=== PATIENT | male | born 1950 | race Caucasian/White ===

== ENCOUNTER 2017-10-10 08:06 | Outpatient (CLI) | payer MEDICARE, OTHER ==
--- NOTE | 2017-10-10 10:14 | MRI ---
CERVICAL SPINE MRI WITHOUT CONTRAST: 10/10/2017 HISTORY: Neck pain. Cervical radiculopathy. COMPARISON: None. TECHNIQUE: Multiplanar, multisequence MR imaging of the cervical spine is obtained without contrast. FINDINGS: There are mild to moderate degenerative changes at the atlantoaxial interspace. Sagittal STIR imagin g demonstrates no focal area of osseous marrow edema. There is minimal anterolisthesis at C2-C3. Otherwise, cervical vertebral body height and alignment a ppear within normal limits. There is no focal prevertebral soft tissue abnormality seen. C2-C3: Mild disk space narrowing and disk desiccation. Bilateral facet and uncovertebral osteophyte formation. Mild bilateral neural foraminal stenosis noted, right greater than left. No significant central canal stenosis. C3-C4: There is disk space narrowing, disk desiccation, and mild disk bulge, with partial effacement of the ventral thecal sac and mild central canal stenosis. There is bilateral facet and uncovertebr al osteophyte formation, left greater than right, with moderate/severe bilateral neural foraminal talia nosis, left greater than right. C4-C5: There is disk space narrowing, disk desiccation, and mild disk bulge. There is a small right paracentral disk protrusion with mild central canal stenosis, primarily right-sided. There is promi nent facet and uncovertebral osteophyte formation with moderate left and severe right neural foramina l stenosis. C5-C6: Disk space narrowing, disk desiccation, and mild disk bulge present, with partial effacement of the ventral thecal sac and mild central canal stenosis. Prominent facet and uncovertebral osteoph yte formation with severe bilateral neural foraminal stenosis. C6-C7: Disk space narrowing, disk desiccation, and disk bulge present, with partial effacement of th e ventral thecal sac and mild central canal stenosis. Disk bulge, as well as prominent bilateral fac et and uncovertebral osteophyte formation causes severe bilateral neural foraminal stenosis, right gr eater than left. C7-T1: Disk space narrowing, disk desiccation, and disk bulge present, with partial effacement of th e ventral thecal sac and mild central canal stenosis. Significant bilateral facet and uncovertebral osteophyte formation noted with moderate bilateral neural foraminal stenosis. No focal area of abnormal signal intensity identified within the cervical cord. IMPRESSION: Prominent multilevel neural foraminal stenosis bilaterally, as detailed above. POS: [facility]
== END 2017-10-10 08:07 | disposition home or self-care (01) ==
LOC: TBSIIMAG 08:06
PROVIDERS: ATTEND Neurological Surgery
DX: M54.12 Radiculopathy, cervical region (principal); M99.81 Other biomechanical lesions of cervical region
CPT/HCPCS: 72141

== ENCOUNTER 2017-11-21 09:05 | Outpatient (CLI) | payer MEDICARE, OTHER ==
--- NOTE | 2017-11-21 12:58 | MRI ---
BRAIN MRI WITH AND WITHOUT CONTRAST: History Benign neoplasm, followup examination in 3 months. COMPARISON: 08/24/17 at [facility] [place] TECHNIQUE: Brain MRI is performed with and without intravenous Gadolinium administration. Multisequential, mult iplanar imaging is performed. FINDINGS: No parenchymal hemorrhage. No extraaxial hematoma. No edison mass, mass effect, or midline shift. Brain volume is age appropriate. Cortical flores-white matter differentiation is preserved. Ventricles and sulci are patent and symmetric. Central arterial flow voids are maintained. Absent restricted diffusion. No evidence of hemorrhage on the axial gradient echo sequence. Adequate aeration of the mastoid air cells. There is bilateral paranasal sinus disease. No pathologic enhancement of the brain parenchyma. Redemonstration of an extraaxial right parafalcine mass, measuring 1.9 cm in the maximum dimension. En plague meningioma is once again favored. No significant associated mass effect or vasogenic edema . No additional extraaxial masses are appreciated. IMPRESSION: Essentially stable En plaque meningioma along the anterior right parafalcine region. POS: [facility]
[2017-11-21] MEDS ORDERED: Gadobenate Dimeglumine 529 MG/1 ML (20ML VIAL) ONE (13:29)
== END 2017-11-21 09:06 | disposition home or self-care (01) ==
LOC: TBSIIMAG 09:05
PROVIDERS: ATTEND Neurological Surgery
DX: D33.2 Benign neoplasm of brain, unspecified (principal)
CPT/HCPCS: 70553; A9579

== ENCOUNTER 2018-07-31 13:15 | Outpatient (CLI) | payer MEDICARE, OTHER ==
[~2018-07-31 13:15] MED LIST: Gadobenate Dimeglumine 529 MG/1 ML (20ML VIAL) ONE
--- NOTE | 2018-07-31 16:14 | MRI ---
PRE AND POST CONTRAST ENHANCED MRI IMAGES OF THE BRAIN: Date: 07-31-18 Comparison: 11-21-17, 08-24-17 Technique: Multiplanar, multisequence pre and post contrast enhanced MRI images were obtained of the brain. 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 D42.0 FINDINGS: Images demonstrate some cortical atrophy and deep white matter ischemic changes. There is a parafalci ne dural based meningioma just to the right of the mid falx, axial 2D measurements of approximately 1 8 x 5 mm, unchanged since the previous exam. No other significant intracranial abnormalities seen. No other intracranial enhancing abnormal lesions seen. The ventricles are of normal size. Normal major intracranial flow voids seen. Bilateral maxillary sinus mucous retention cysts. IMPRESSION: Right parafalcine dural based enhancing lesion compatible with a stable meningioma. POS: [facility]
== END 2018-07-31 13:16 | disposition home or self-care (01) ==
LOC: TBSIIMAG 13:15
PROVIDERS: ATTEND Neurological Surgery
DX: D42.0 Neoplasm of uncertain behavior of cerebral meninges (principal); G93.9 Disorder of brain, unspecified
CPT/HCPCS: 70553; 82565; A9579

== ENCOUNTER 2019-07-30 12:57 | Outpatient (CLI) | payer MEDICARE, OTHER ==
--- NOTE | 2019-07-30 14:22 | MRI ---
Exam: Brain MRI with and without contrast HISTORY: Follow-up exam. Meningioma. COMPARISON: 07/31/2018 FINDINGS: Gradient echo sequence: No hemorrhage Calvarium: Appropriate T1 marrow signal intensity Midline brain parenchyma: Unremarkable Cerebrum:No parenchymal mass, mass effect or midline shift. Brain volume is age-appropriate. Cortical flores-white matter differentiation is preserved. Stable T2 and FLAIR white matter hyperintensities due to chronic small vessel change. Ventricles: No evidence of hydrocephalus. Sinuses and mastoid air cells: Mild mucosal thickening in the paranasal sinuses. Adequate mastoid air cell aeration. Diffusion: Central arterial flow is maintained. Absent restricted diffusion. Postcontrast images: No pathologic enhancement of the brain parenchyma. There is redemonstration of a calcified anterior right parafalcine extra-axial mass. There is minimal mass effect upon the adjacent medial right frontal cortex. Stable enhancement. Based on the noncontrast T1-weighted images, this meningioma measures 2.1 cm anterior-posterior by 0.5 cm mediolat eral. Previously, the meningioma measured 2.2 x 0.5 cm. No appreciable change. IMPRESSION: Essentially stable anterior right parafalcine meningioma.
== END 2019-07-30 12:58 | disposition home or self-care (01) ==
LOC: TBSIIMAG 12:57
PROVIDERS: ATTEND Neurological Surgery
DX: D42.0 Neoplasm of uncertain behavior of cerebral meninges (principal); D32.0 Benign neoplasm of cerebral meninges
CPT/HCPCS: 70553; 82565

== ENCOUNTER 2020-07-29 08:25 | Outpatient (CLI) | payer MEDICARE, OTHER ==
[2020-07-29 09:10] LABS: Estimated GFR-MDRD - POC Greater than 90
--- NOTE | 2020-07-29 10:06 | MRI ---
Exam: Brain MRI with and without contrast HISTORY: Follow-up brain tumor. Brain lab protocol. Follow-up meningioma. COMPARISON: 07/30/2019 FINDINGS: Gradient echo sequence: Loss of signal associated with the anterior right parafalcine meningioma, ayesha t is likely partially calcified. Stable loss of signal of the pineal gland. Calvarium: Appropriate T1 marrow signal intensity Midline brain parenchyma: Unremarkable Cerebrum:No parenchymal mass, mass effect or midline shift. Age-appropriate atrophy. Cortical flores-wh ite matter differentiation is preserved. T2 and FLAIR white matter hyperintensities due to chronic small vessel ischemic change. Ventricles: No evidence of hydrocephalus. Sinuses and mastoid air cells: Bilateral maxillary sinus disease with mucous retention cyst. Mucosal thickening of the ethmoid air cells. Diffusion: Central arterial flow is maintained. Absent restricted diffusion. Postcontrast images: No pathologic enhancement of the brain parenchyma. Additional findings: Redemonstration of a partially calcified right parafalcine meningioma, measuring 2.1 x 0.5 cm, previous the measuring 2.1 x 0.5 cm. Minimal mass effect upon the adjacent medial right frontal lobe. No associated edema. IMPRESSION: 1. Essentially stable right parafalcine meningioma.
[2020-07-29] MEDS ORDERED: Magnevist 469MG/ML 20 ML VIAL ONE (13:53)
== END 2020-07-29 08:26 | disposition home or self-care (01) ==
LOC: TBSIIMAG 08:25
PROVIDERS: ATTEND Neurological Surgery
DX: D32.0 Benign neoplasm of cerebral meninges (principal)
CPT/HCPCS: 70553; 82565; A9579

== ENCOUNTER 2022-04-01 11:47 | Outpatient (CLI) | payer MEDICARE, OTHER | END 2022-04-01 11:48 | disposition home or self-care (01) | LOC: BICULT 11:47 | PROVIDERS: ATTEND Otolaryngology Plastic Surgery within the Head & Neck | DX: E04.1 Nontoxic single thyroid nodule (principal) | CPT/HCPCS: 76536 ==

== ENCOUNTER 2023-05-10 08:58 | Outpatient (CLI) | payer MEDICARE, OTHER | END 2023-05-10 08:59 | disposition home or self-care (01) | LOC: BICULT 08:58 | PROVIDERS: ATTEND Otolaryngology Plastic Surgery within the Head & Neck | DX: E04.9 Nontoxic goiter, unspecified (principal); E04.1 Nontoxic single thyroid nodule | CPT/HCPCS: 76536 ==

== ENCOUNTER 2023-07-12 07:54 | Outpatient (CLI) | payer MEDICARE, OTHER | END 2023-07-12 07:55 | disposition home or self-care (01) | LOC: BICRAD 07:54 | PROVIDERS: ATTEND Family Medicine | DX: M54.50 Low back pain, unspecified (principal); M25.572 Pain in left ankle and joints of left foot; M47.816 Spondylosis without myelopathy or radiculopathy, lumbar region; M19.072 Primary osteoarthritis, left ankle and foot | CPT/HCPCS: 72100 ==

== ENCOUNTER 2023-08-22 08:09 | Outpatient (CLI) | payer MEDICARE, OTHER | END 2023-08-22 08:10 | disposition home or self-care (01) | LOC: BICRAD 08:09 | PROVIDERS: ATTEND Neurological Surgery | DX: M54.50 Low back pain, unspecified (principal); M47.816 Spondylosis without myelopathy or radiculopathy, lumbar region; M51.36 Other intervertebral disc degeneration, lumbar region; M46.06 Spinal enthesopathy, lumbar region; M89.38 Hypertrophy of bone, other site | CPT/HCPCS: 72120 ==

== ENCOUNTER 2024-08-05 08:55 | Outpatient (CLI) | payer MEDICARE, OTHER ==
[2024-08-05 10:40] LABS: #Basophils 0.04 10x3/uL (0.0-0.2); %Basophils 0.5 % (0.0-1.0); %Eosinophils 1.7 % (0.0-10.0); %Monocytes 9.4 % (0.0-10.0); Hematocrit 45.1 % (42.0-52.0); Hemoglobin 15.1 g/dL (14.0-18.0); Mean Corpuscular HGB CONC 33.5 g/dL (32.0-36.0); Mean Corpuscular Hemoglobin 32.2 pg (27.0-31.0); Mean Corpuscular Volume 96.2 fL (78.0-98.0); Mean Platelet Volume 9.6 fL (7.4-10.4); Platelet Count 219 10x3/uL (130-400); RBC Distribution Width 14.4 % (11.5-14.5); Red Blood Cell (RBC) Count 4.69 mill/uL (4.70-6.10)
== END 2024-08-05 08:56 | disposition home or self-care (01) ==
LOC: LABBT 08:55
PROVIDERS: ATTEND Thoracic Surgery (Cardiothoracic Vascular Surgery)
DX: Z01.818 Encounter for other preprocedural examination (principal); I25.10 Atherosclerotic heart disease of native coronary artery without angina pectoris
CPT/HCPCS: 71046; 85025; 86850; 86900; 86901; 93005; 93010

== ENCOUNTER 2024-08-05 10:30 | Inpatient (IN) | payer MEDICARE, OTHER ==
[2024-08-06] MEDS ORDERED: Albumin 5% 500 ML ONE (06:17)
[2024-08-06] MEDS ORDERED: Dexamethasone 4 mg/ml Vial ONE (06:17)
[2024-08-06] MEDS ORDERED: PHENYLEPHRINE-NS 100 MCG/ML 10 ML SYRINGE ONE ×2 (06:17→06:42)
[2024-08-06] MEDS ORDERED: Bupivacaine PF 0.5% 30 ML VIAL ONE (06:17)
[2024-08-06] MEDS ORDERED: EPINEPHrine 1 MG/ML VIAL ONE (06:17)
[2024-08-06] MEDS ORDERED: Lidocaine 1% MPF 2 ML VIAL ONE (06:28)
[2024-08-06] MEDS ORDERED: Sodium Chloride 0.9% 0 ML ONE (06:28)
[2024-08-06] MEDS ORDERED: CEFAZOLIN 2 GM VIAL ONE (06:28)
[2024-08-06] MEDS ORDERED: Etomidate 40 MG (20 mL) VIAL ONE (06:30)
[2024-08-06] MEDS ORDERED: PROPOFOL 20 ML ONE ×2 (06:34→08:04)
[2024-08-06] MEDS ORDERED: Fentanyl 250 MCG/5 ML VIAL ONE (06:40)
[2024-08-06] MEDS ORDERED: Rocuronium Bromide 10 MG/ML (10ML VIAL) ONE ×2 (06:41→09:09)
[2024-08-06] MEDS ORDERED: Midazolam HCl 2 mg/2 ml Vial ONE ×3 (06:41→07:02)
[2024-08-06] MEDS ORDERED: NOREPINEPHRINE 8 MG/250 ML-D5W 250 ML ONE (06:43)
[2024-08-06] MEDS ORDERED: Heparin 10,000 UNITS/1 ML VIAL 30,000 UNITS in Sodium Chloride 0.9% 1,000 ML FS SCH (06:45)
[2024-08-06 07:33] LABS: Anion Gap 12 mmol/L (10-20); BUN (Urea Nitrogen) 16 mg/dL (8.4-25.7); Calc. Creatinine Clearance 97 mL/min (70-130); Calcium 9.4 mg/dL (7.8-10.44); Carbon Dioxide 23 mmol/L (23-31); Chloride 107 mmol/L (98-107); Estimated GFR 91; Glucose 128 mg/dL (83-110); Potassium 4.1 mmol/L (3.5-5.1); Sodium 138 mmol/L (136-145)
[2024-08-06] MEDS ORDERED: Potassium Chloride 60 mEq (30 mL) VIAL ONE (07:38)
[2024-08-06] MEDS ORDERED: Vancomycin 1 GM VIAL ONE (07:38)
[2024-08-06] MEDS ORDERED: Cardioplegic Soln 1,000 ML BAG ONE (07:38)
[2024-08-06] MEDS ORDERED: Thrombin 5000 UNITS/5 ML VIAL ONE (07:38)
[2024-08-06] MEDS ORDERED: Calcium Chloride 1 GM/10 ML Abboject SYRINGE ONE (07:38)
[2024-08-06] MEDS ORDERED: Heparin 30,000 units/30 ml VIAL ONE (07:38)
[2024-08-06] MEDS ORDERED: Lidocaine 2% PF 100 mg/5 ml Syringe ONE (07:38)
[2024-08-06] MEDS ORDERED: Papaverine 60 MG/2 ML VIAL ONE (07:38)
[2024-08-06] MEDS ORDERED: Aminocaproic Acid 5 GM/20 ML VIAL ONE (07:38)
[2024-08-06] MEDS ORDERED: Magnesium 5 GM/10 ML VIAL ONE (07:38)
[2024-08-06] MEDS ORDERED: Esmolol 100 MG/10 ML VIAL ONE (07:38)
[2024-08-06] MEDS ORDERED: Sodium Bicarb 50 mEq/50 ML VIAL ONE (07:38)
[2024-08-06] MEDS ORDERED: Heparin 5,000 UNITS/ML VIAL ONE (07:38)
[2024-08-06] MEDS ORDERED: Ondansetron PF 4 MG/2 ML Vial ONE (07:38)
[2024-08-06] MEDS ORDERED: Vecuronium 10 MG VIAL ONE (09:09)
[2024-08-06] MEDS ORDERED: Insulin Regular, Human 100 UNIT/ML 10 ML VIAL ONE (09:18)
[2024-08-06] MEDS ORDERED: SUGAMMADEX SODIUM 200 MG/2 ML VIAL ONE (10:48)
[2024-08-06] MEDS ORDERED: Hetastarch 6% 500 ML 500 ML IVPB PRN (10:58)
[2024-08-06] MEDS ORDERED: Ipratropium/Albuterol 3 ML NEB NEB PRN (10:58)
[2024-08-06] MEDS ORDERED: NOREPINEPHRINE 8 MG/250 ML-D5W 250 ML IVPB PRN (10:58)
[2024-08-06] MEDS ORDERED: Guaifenesin DM 100-10/5 ML UDCUP PO PRN (10:58)
[2024-08-06] MEDS ORDERED: Acetaminophen 325 MG TAB PO PRN (10:58)
[2024-08-06] MEDS ORDERED: Morphine 2 MG/ML VIAL SLOW IVP PRN (10:58)
[2024-08-06] MEDS ORDERED: Mag-Al 1200 mg/1200 mg/30 ML UDCUP PO PRN (10:58)
[2024-08-06] MEDS ORDERED: hydrALAZINE 20 MG/ML VIAL SLOW IVP PRN (10:58)
[2024-08-06] MEDS ORDERED: fentaNYL 50 mcg/mL 1 mL Vial SLOW IVP PRN (10:58)
[2024-08-06] MEDS ORDERED: Nitroglycerin 50 MG/250 ML BOT 250 ML IVPB PRN (10:58)
[2024-08-06] MEDS ORDERED: Albumin 5% 12.5 GM (250 mL) BOT IVPB PRN (10:58)
[2024-08-06] MEDS ORDERED: Bisacodyl 10 MG SUPP PR PRN (10:58)
[2024-08-06 11:09] LABS: Actual Bicarbonate (HCO3a) 20.9 mEq/L (22-28); Analyzer IN Cardio OR; Base Excess (BEa) -5.3 mEq/L (-2.0 to +3.0); CO2 Tension 43.5 mmHg (35.0-45.0); Calcium, Ionized (arterial) 1.33 mmol/L (1.12-1.30); Carboxyhemoglobin (COHb) 0.3 gm% (0.0-3.0); Hematocrit-ABG 31 % (42.0-52.0); Hemoglobin (Hb) 10.7 g/dL (14.0-18.0); O2 Tension (PaO2), arterial 207.9 mmHg (> 70.0); Potassium - ABG Lab 3.83 mmol/L (3.70-5.30); pH, Arterial 7.299 (7.35-7.45)
[2024-08-06 11:10] LABS: Actual Bicarbonate (HCO3a) 19.4 mEq/L (22-28); Analyzer IN Cardio OR; Base Excess (BEa) -4.9 mEq/L (-2.0 to +3.0); CO2 Tension 33.6 mmHg (35.0-45.0); Calcium, Ionized (arterial) 1.08 mmol/L (1.12-1.30); Carboxyhemoglobin (COHb) 0.1 gm% (0.0-3.0); Hematocrit-ABG 34 % (42.0-52.0); Hemoglobin (Hb) 11.4 g/dL (14.0-18.0); O2 Tension (PaO2), arterial 354.4 mmHg (> 70.0); Potassium - ABG Lab 4.83 mmol/L (3.70-5.30)
[2024-08-06 11:10] LABS: Actual Bicarbonate (HCO3a) 19.1 mEq/L (22-28); Analyzer IN Cardio OR; Base Excess (BEa) -4.4 mEq/L (-2.0 to +3.0); CO2 Tension 31.1 mmHg (35.0-45.0); Calcium, Ionized (arterial) 1.18 mmol/L (1.12-1.30); Carboxyhemoglobin (COHb) 0.6 gm% (0.0-3.0); Hematocrit-ABG 41 % (42.0-52.0); Hemoglobin (Hb) 14.1 g/dL (14.0-18.0); O2 Tension (PaO2), arterial 354.1 mmHg (> 70.0); Potassium - ABG Lab 3.84 mmol/L (3.70-5.30); pH, Arterial 7.407 (7.35-7.45)
[2024-08-06 11:10] LABS: Actual Bicarbonate (HCO3a) 20.2 mEq/L (22-28); Analyzer IN Cardio OR; Base Excess (BEa) -5.1 mEq/L (-2.0 to +3.0); CO2 Tension 38.6 mmHg (35.0-45.0); Calcium, Ionized (arterial) 1.15 mmol/L (1.12-1.30); Carboxyhemoglobin (COHb) 0.5 gm% (0.0-3.0); Hematocrit-ABG 40 % (42.0-52.0); Hemoglobin (Hb) 13.6 g/dL (14.0-18.0); O2 Tension (PaO2), arterial 380.9 mmHg (> 70.0); Potassium - ABG Lab 4.12 mmol/L (3.70-5.30); pH, Arterial 7.337 (7.35-7.45)
[2024-08-06 11:10] LABS: Actual Bicarbonate (HCO3a) 20.6 mEq/L (22-28); Analyzer IN Cardio OR; Base Excess (BEa) -5.4 mEq/L (-2.0 to +3.0); CO2 Tension 42.2 mmHg (35.0-45.0); Calcium, Ionized (arterial) 1.23 mmol/L (1.12-1.30); Carboxyhemoglobin (COHb) 0.3 gm% (0.0-3.0); Hematocrit-ABG 32 % (42.0-52.0); Hemoglobin (Hb) 10.8 g/dL (14.0-18.0); O2 Tension (PaO2), arterial 115.4 mmHg (> 70.0); Potassium - ABG Lab 3.36 mmol/L (3.70-5.30); pH, Arterial 7.306 (7.35-7.45)
[2024-08-06 11:10] LABS: Actual Bicarbonate (HCO3a) 19.6 mEq/L (22-28); Analyzer IN Cardio OR; Base Excess (BEa) -5.5 mEq/L (-2.0 to +3.0); CO2 Tension 36.9 mmHg (35.0-45.0); Calcium, Ionized (arterial) 1.08 mmol/L (1.12-1.30); Carboxyhemoglobin (COHb) 0.3 gm% (0.0-3.0); Hematocrit-ABG 32 % (42.0-52.0); O2 Tension (PaO2), arterial 406.2 mmHg (> 70.0); Potassium - ABG Lab 3.73 mmol/L (3.70-5.30); pH, Arterial 7.343 (7.35-7.45)
[2024-08-06 11:11] LABS: Actual Bicarbonate (HCO3a) 20.6 mEq/L (22-28); Analyzer IN Cardio OR; Base Excess (BEa) -7.1 mEq/L (-2.0 to +3.0); CO2 Tension 50.8 mmHg (35.0-45.0); Calcium, Ionized (arterial) 1.21 mmol/L (1.12-1.30); Carboxyhemoglobin (COHb) 0.3 gm% (0.0-3.0); Hematocrit-ABG 34 % (42.0-52.0); Hemoglobin (Hb) 11.7 g/dL (14.0-18.0); O2 Tension (PaO2), arterial 92.7 mmHg (> 70.0); Potassium - ABG Lab 3.34 mmol/L (3.70-5.30); pH, Arterial 7.226 (7.35-7.45)
[2024-08-06 11:12] LABS: Actual Bicarbonate (HCO3a) 20.2 mEq/L (22-28); Analyzer IN Cardio OR; Base Excess (BEa) -7.7 mEq/L (-2.0 to +3.0); CO2 Tension 51.6 mmHg (35.0-45.0); Calcium, Ionized (arterial) 1.23 mmol/L (1.12-1.30); Carboxyhemoglobin (COHb) 0.3 gm% (0.0-3.0); Hematocrit-ABG 36 % (42.0-52.0); Hemoglobin (Hb) 12.3 g/dL (14.0-18.0); O2 Tension (PaO2), arterial 138.2 mmHg (> 70.0); Potassium - ABG Lab 3.64 mmol/L (3.70-5.30); pH, Arterial 7.211 (7.35-7.45)
[2024-08-06] MEDS ORDERED: Glucagon 1 MG/ML KIT SC PRN (11:15)
[2024-08-06] MEDS ORDERED: Dextrose 50% Abboject 50 ML SYRINGE SLOW IVP PRN (11:15)
[2024-08-06] MEDS ORDERED: Dextrose 5% in Water 1,000 ML IV PRN (11:15)
[2024-08-06] MEDS ORDERED: INSULIN REGULAR IN 0.9 % NACL 100 UNITS in Premix 1 BAG IVPB SCH (11:15)
[2024-08-06 11:16] LABS: Puncture Site Arterial Line
[2024-08-06 11:16] LABS: Puncture Site Arterial Line
[2024-08-06 11:16] LABS: Puncture Site Arterial Line
[2024-08-06 11:17] LABS: Puncture Site Arterial Line
[2024-08-06 11:17] LABS: Puncture Site Arterial Line
[2024-08-06 11:17] LABS: Puncture Site Arterial Line
[2024-08-06 11:18] LABS: Puncture Site Arterial Line
[2024-08-06 11:18] LABS: Puncture Site Arterial Line
[2024-08-06] MEDS: Post-Op Insulin Drip Protocol IVPB ONE (11:30)
[2024-08-06] MEDS: D5 1/2 NS w/20 mEq KCL 1,000 ML IV SCH (11:35)
[2024-08-06] MEDS: Magnesium 2 GM/50 ML(in water) 2 GM in Premix 1 BAG IVPB SCH (11:40)
[2024-08-06] MEDS: Ketorolac Tromethamine 30 MG (1 mL) VIAL IVP SCH (11:40)
[2024-08-06 11:52] LABS: #Basophils 0.03 10x3/uL (0.0-0.2); %Basophils 0.2 % (0.0-1.0); %Eosinophils 0.8 % (0.0-10.0); %Lymphocytes 17.5 % (21.0-51.0); %Monocytes 7.2 % (0.0-10.0); %Neutrophils 73.7 % (42.0-75.0); Hematocrit 36.1 % (42.0-52.0); Hemoglobin 12.2 g/dL (14.0-18.0); Mean Corpuscular HGB CONC 33.8 g/dL (32.0-36.0); Mean Corpuscular Hemoglobin 32.5 pg (27.0-31.0); Mean Corpuscular Volume 96.3 fL (78.0-98.0); Mean Platelet Volume 9.1 fL (7.4-10.4); Platelet Count 138 10x3/uL (130-400); RBC Distribution Width 14.2 % (11.5-14.5); Red Blood Cell (RBC) Count 3.75 mill/uL (4.70-6.10)
[2024-08-06 11:56] LABS: INR-International Normal Ratio 1.3; PTT 29.7 sec (22.9-36.1); Prothrombin Time 15.9 sec (12.0-14.7)
[2024-08-06 12:02] LABS: Anion Gap 12 mmol/L (10-20); BUN (Urea Nitrogen) 15 mg/dL (8.4-25.7); Calc. Creatinine Clearance 104 mL/min (70-130); Calcium 8.3 mg/dL (7.8-10.44); Carbon Dioxide 22 mmol/L (23-31); Chloride 112 mmol/L (98-107); Estimated GFR 93; Glucose 111 mg/dL (83-110); Potassium 3.6 mmol/L (3.5-5.1); Sodium 142 mmol/L (136-145)
[2024-08-06] MEDS: CEFAZOLIN 2 GM in Sodium Chloride 0.9% 100 ML IVPB SCH (12:50)
[2024-08-06] MEDS: Albumin 5% 12.5 GM (250 mL) BOT IVPB PRN (12:50)
[2024-08-06] MEDS: Ondansetron PF 4 MG/2 ML Vial IVP PRN (12:55)
[2024-08-06] MEDS: fentaNYL 50 mcg/mL 1 mL Vial SLOW IVP PRN (12:55)
[2024-08-06] MEDS: Potassium Chloride 20 MEQ (100 mL) BAG IVPB PRN (13:00)
[2024-08-06] MEDS: traMADol HCl 50 MG TAB PO PRN ×2 (15:05→22:02)
[2024-08-06] MEDS: Insulin Regular, Human 100 UNIT/ML 10 ML VIAL SC PRN (16:00)
[2024-08-06 17:40] LABS: Hematocrit 38.4 % (42.0-52.0); Hemoglobin 12.4 g/dL (14.0-18.0)
[2024-08-06 18:06] LABS: Potassium 4.5 mmol/L (3.5-5.1)
[2024-08-06] MEDS: Famotidine/PF 20 mg/2ml Vial SLOW IVP SCH (20:03)
[2024-08-06] MEDS: Allopurinol 300 MG TAB PO SCH (20:03)
[2024-08-07 04:50] LABS: #Basophils Less than 0.03 10x3/uL (0.0-0.2); #Eosinophils Less than 0.03 10x3/uL (0.0-0.7); %Basophils 0.2 % (0.0-1.0); %Lymphocytes 8.5 % (21.0-51.0); %Monocytes 8.4 % (0.0-10.0); %Neutrophils 82.4 % (42.0-75.0); Hematocrit 35.9 % (42.0-52.0); Mean Corpuscular HGB CONC 33.4 g/dL (32.0-36.0); Mean Corpuscular Hemoglobin 32.1 pg (27.0-31.0); Mean Platelet Volume 10.2 fL (7.4-10.4); Platelet Count 139 10x3/uL (130-400); RBC Distribution Width 14.5 % (11.5-14.5); Red Blood Cell (RBC) Count 3.74 mill/uL (4.70-6.10)
[2024-08-07 04:53] LABS: Anion Gap 13 mmol/L (10-20); BUN (Urea Nitrogen) 16 mg/dL (8.4-25.7); Calc. Creatinine Clearance 120 mL/min (70-130); Calcium 8.2 mg/dL (7.8-10.44); Carbon Dioxide 20 mmol/L (23-31); Chloride 108 mmol/L (98-107); Estimated GFR 94; Glucose 138 mg/dL (83-110); Sodium 137 mmol/L (136-145)
[2024-08-07 05:51] VITALS: BMI 29.9
[2024-08-07] MEDS: CEFAZOLIN 2 GM in Sodium Chloride 0.9% 100 ML IVPB SCH (06:17)
[2024-08-07] MEDS ORDERED: Artificial Tear Ophth Sol 15 ML BOT EA EYE PRN (07:23)
[2024-08-07] MEDS ORDERED: Nitroglycerin 0.4 MG TAB (25 Tab Bottle) SL PRN (07:23)
[2024-08-07] MEDS ORDERED: diphenhydrAMINE 25 MG CAP PO PRN (07:23)
[2024-08-07] MEDS ORDERED: Milk Of Magnesia 30 ML UDCUP PO PRN (07:23)
[2024-08-07] MEDS ORDERED: Mineral Oil ENEMA PR PRN (07:23)
[2024-08-07] MEDS ORDERED: Glucagon 1 MG/ML KIT SC PRN (07:45)
[2024-08-07] MEDS ORDERED: Dextrose 5% in Water 1,000 ML IV PRN (07:45)
[2024-08-07] MEDS ORDERED: INSULIN REGULAR IN 0.9 % NACL 100 UNITS in Premix 1 BAG IVPB SCH (07:45)
[2024-08-07] MEDS ORDERED: Insulin Reg, Human 100 UNITS in Sodium Chloride 0.9% 100 ML IVPB SCH (07:45)
[2024-08-07] MEDS ORDERED: Dextrose 50% Abboject 50 ML SYRINGE SLOW IVP PRN (07:45)
[2024-08-07] MEDS: Potassium Chloride 10 MEQ TAB PO SCH (08:16)
[2024-08-07] MEDS: Aspirin 325 mg Enteric Coated Tablet PO SCH (08:16)
[2024-08-07] MEDS: Furosemide 40 MG TAB PO SCH (08:16)
[2024-08-07] MEDS: Rosuvastatin 20 MG TAB PO SCH (08:16)
[2024-08-07] MEDS: Magnesium 2 GM/50 ML(in water) 2 GM in Premix 1 BAG IVPB SCH (08:17)
[2024-08-07] MEDS: FLU (Fluad Triv) TS24-25 (65UP)/MF59C/PF 45 MCG/0.5 ML Syringe IM ONE (08:17)
[2024-08-07] MEDS: Metoprolol Tartrate 25 MG TAB PO SCH (08:24)
[2024-08-07] MEDS ORDERED: Aspirin 325 MG TAB PO SCH (09:00)
[2024-08-07] MEDS ORDERED: Insulin Glargine 30 UNITS/0.3 ML VIAL SC PRN (11:09)
[2024-08-07] MEDS: Insulin Regular, Human 100 UNIT/ML 10 ML VIAL SC PRN (11:55)
[2024-08-07] MEDS: dilTIAZem 25 MG/5 ML VIAL SLOW IVP SCH (23:41)
[2024-08-07] MEDS: Diltiazem HCl/D5W 125 MG in Premix 1 BAG IVPB SCH (23:43)
[2024-08-08] MEDS: dilTIAZem 25 MG/5 ML VIAL SLOW IVP SCH (00:25)
[2024-08-08] MEDS ORDERED: Insulin Glargine 30 UNITS/0.3 ML VIAL SC PRN (07:32)
[2024-08-08] MEDS: Bisacodyl 5 MG TAB PO PRN (17:49)
[2024-08-08] MEDS: Metoprolol Tartrate 25 MG TAB PO SCH (20:50)
[2024-08-09] MEDS: dilTIAZem 30 MG TAB PO SCH (17:24)
[2024-08-09] MEDS: dilTIAZem 25 MG/5 ML VIAL SLOW IVP SCH (21:04)
[2024-08-09] MEDS: Diltiazem HCl/D5W 125 MG in Premix 1 BAG IVPB SCH (21:06)
[2024-08-11] MEDS: Amiodarone 150 MG, Admixture Fee 1 EACH in Dextrose 5% in Water 100 ML IVPB SCH (16:37)
[2024-08-11] MEDS: Amiodarone 450 MG in Dextrose 5% in Water 250 ML IVPB SCH (16:42)
[2024-08-11] MEDS ORDERED: dilTIAZem ER 60 MG CAP PO SCH (21:00)
[2024-08-11] MEDS: Metoprolol Tartrate 5 MG (5 mL) VIAL IVP SCH (22:13)
[2024-08-12] MEDS: Amiodarone 200 MG TAB PO SCH ×2 (09:19→14:44)
[2024-08-12] MEDS ORDERED: Amiodarone 450 MG, Admixture Fee 1 EACH in Dextrose 5% in Water 250 ML IVPB SCH (12:45)
[2024-08-12] MEDS: Amiodarone 150 MG, Admixture Fee 1 EACH in Dextrose 5% in Water 100 ML IVPB SCH (14:24)
[2024-08-12] MEDS: Digoxin 0.5 MG/2 ML AMP SLOW IVP SCH ×3 (20:11→23:14)
[2024-08-13] MEDS: Amiodarone 150 MG, Admixture Fee 1 EACH in Dextrose 5% in Water 100 ML IVPB SCH (02:37)
[2024-08-13] MEDS: Amiodarone 450 MG, Admixture Fee 1 EACH in Dextrose 5% in Water 250 ML IVPB SCH (02:57)
[2024-08-13] MEDS: Digoxin 0.5 MG/2 ML AMP SLOW IVP SCH (03:15)
[2024-08-13] MEDS: Digoxin 0.125 MG TAB PO SCH (09:59)
[2024-08-13 10:36] LABS: Anion Gap 12 mmol/L (10-20); BUN (Urea Nitrogen) 14 mg/dL (8.4-25.7); Calc. Creatinine Clearance 104 mL/min (70-130); Carbon Dioxide 24 mmol/L (23-31); Chloride 103 mmol/L (98-107); Estimated GFR 93; Glucose 235 mg/dL (83-110); Magnesium 1.5 mg/dL (1.6-2.6); Phosphorus 2.7 mg/dL (2.3-4.7); Potassium 3.5 mmol/L (3.5-5.1); Sodium 135 mmol/L (136-145)
[2024-08-13 10:42] LABS: #Basophils 0.04 10x3/uL (0.0-0.2); %Basophils 0.4 % (0.0-1.0); %Eosinophils 0.7 % (0.0-10.0); %Lymphocytes 12.3 % (21.0-51.0); %Monocytes 7.5 % (0.0-10.0); Hematocrit 42.4 % (42.0-52.0); Hemoglobin 14.2 g/dL (14.0-18.0); Mean Corpuscular HGB CONC 33.5 g/dL (32.0-36.0); Mean Corpuscular Hemoglobin 31.9 pg (27.0-31.0); Mean Corpuscular Volume 95.3 fL (78.0-98.0); Mean Platelet Volume 9.1 fL (7.4-10.4); Platelet Count 308 10x3/uL (130-400); RBC Distribution Width 13.8 % (11.5-14.5); Red Blood Cell (RBC) Count 4.45 mill/uL (4.70-6.10)
[2024-08-13 11:17] VITALS: BMI 28.0
[2024-08-13] MEDS: Magnesium Sulfate In Water 4 GM in Premix 1 BAG IVPB SCH (15:43)
[2024-08-15 09:33] VITALS: BP 162/79; TEMP 98.1
== END 2024-08-15 12:00 | disposition home or self-care (01) | DRG 236 ==
LOC: SURG A 08-06 06:05 → CCU 08-06 10:52 → 2NO 08-07 18:07 → PCU 08-13 13:37
PROVIDERS: ADMIT Thoracic Surgery (Cardiothoracic Vascular Surgery); ATTEND Thoracic Surgery (Cardiothoracic Vascular Surgery)
PROC: 02100Z9 Bypass Coronary Artery, One Artery from Left Internal Mammary, Open Approach (ICD-10-PCS; principal; 2024-08-06)
PROC: 021209W Bypass Coronary Artery, Three Arteries from Aorta with Autologous Venous Tissue, Open Approach (ICD-10-PCS; 2024-08-06)
PROC: 06BQ4ZZ Excision of Left Saphenous Vein, Percutaneous Endoscopic Approach (ICD-10-PCS; 2024-08-06)
PROC: 02L70CK Occlusion of Left Atrial Appendage with Extraluminal Device, Open Approach (ICD-10-PCS; 2024-08-06)
PROC: 4A133R1 Monitoring of Arterial Saturation, Peripheral, Percutaneous Approach (ICD-10-PCS; 2024-08-06)
DX: I25.10 Atherosclerotic heart disease of native coronary artery without angina pectoris (principal); I97.190 Other postprocedural cardiac functional disturbances following cardiac surgery; E78.5 Hyperlipidemia, unspecified; I10 Essential (primary) hypertension; I48.91 Unspecified atrial fibrillation; Z79.899 Other long term (current) drug therapy; Z79.84 Long term (current) use of oral hypoglycemic drugs; E11.9 Type 2 diabetes mellitus without complications; Z90.49 Acquired absence of other specified parts of digestive tract; Z95.5 Presence of coronary angioplasty implant and graft; Z79.82 Long term (current) use of aspirin; Z79.85 Long-term (current) use of injectable non-insulin antidiabetic drugs; Z88.7 Allergy status to serum and vaccine
CPT/HCPCS: 36416; 36430; 71045; 71046; 80048; 82805; 83735; 84100; 85025; 85610; 85730; 86850; 86900; 86901; 93005; 93010; 93798; A4311; A4648; C1751; C1889; J0171; J0282; J0665; J1100; J1160; J1642; J1644; J1815; J1885; J2003; J2250; J2405; J2440; J2704; J3010; J3370; J3475; J3480; J3490; J7070; P9045; S0017